=== PATIENT | female | born 1945 | race Caucasian/White ===

== ENCOUNTER 2016-08-25 09:08 | Inpatient (IN) | payer OTHER, BC ==
[~2016-08-25] VITALS: Ht 162.6 cm; Wt 104.3 kg
--- NOTE | ~2016-08-25 | D ---
[facility] [place] [address] DISCHARGE SUMMARY Name: RODO BLACKWELL Room #: 547-P [facility] IN M.R.#: [id number] Admission: 08/25/16 Attend Phys: Alec Mcmullen MD Discharge: 08/28/16 Date of : 43 Report #: [id number] THIS REPORT FOR: //name// CC: Alec Marrerosamm Hoskinsvalentino DATE OF SERVICE: 08/28/2016 TYPE OF DICTATION: Discharge summary. After [id number] encounter, I did see the patient and examined her on the day of discharge service. DISCHARGE DIAGNOSES: 1. Fracture of proximal end of tibia and fibula, left side. 2. Insulin-dependent diabetes mellitus. 3. Osteoarthritis. 4. Hypertension. 5. Chronic obstructive pulmonary disease. 6. Hypothyroidism. 7. Depression. 8. Gastroesophageal reflux disease. 9. Hyperlipidemia. 10. Unstable gait. DISCHARGE MEDICATIONS: See discharge summary. HOSPITAL COURSE: The patient was admitted to the hospital secondary to fracture of proximal end of tibia and fibula after a fall. She was seen by orthopedic and they said that she is not a candidate for any surgery and they are going to treat her with just splint and knee immobilization. The patient was doing fine during her stay in the hospital or her medical problems were under control and she is going to this afternoon to follow with physical therapy there and to get OT and PT. <ELECTRONICALLY SIGNED> By: Aletha Cruz MD 08/29/16 1015 1134 1945 Aletha Cruz MD /nt
--- NOTE | ~2016-08-25 | EKG ---
[place] [address] [address] [facility] [place] [address] ELECTROCARDIOGRAM REPORT Name: RODO BLACKWELL Room #: 547-P ADM IN ..#: [id number] Admission: 08/25/16 Attend Phys: Alec Mcmullen MD Discharge: Date of : 43 Report #: [id number] THIS REPORT FOR: //name// [facility] ED Test Date: 2016-08-25 Test Time: 11:02:30 Pat Name: RODO BLACKWELL Department: Room: 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
--- NOTE | ~2016-08-25 | HC ---
[facility] [place] [address] CONSULTATION Name: RODO BLACKWELL Room #: 547-P ADM IN M.R.#: [id number] Admission: 08/25/16 Attend Phys: Alec Mcmullen MD Discharge: Date of : 43 Report #: [id number] THIS REPORT FOR: //name// CC: Alec Ayala CHIEF COMPLAINT: Left proximal tibia and fibular fracture. 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 She subsequently was evaluated in the emergency room and noted to have a proximal tibia and fibular fracture. PAST MEDICAL HISTORY: Significant or post-polio, hyperlipidemia, unstable gait, diabetes type 2, hypertension, osteoarthritis, bilateral total knee replacements, bladder sling, ankle fracture, deviated septum repair in 1999, COPD, chronic cough, history of thyroidectomy, tonsillectomy, history of hypothyroidism, gastroesophageal reflux disease, depression and anxiety. ALLERGIES: None. PHYSICAL EXAMINATION: GENERAL: This is an obese female, in minimal distress. EXTREMITIES: Examination of her left lower extremity notes that she is neurovascularly intact distally. She has good capillary refill. She is tender proximally at her proximal tibia and fibula. MUSCULOSKELETAL: Examination of the patient's left lower extremity notes that she has tenderness proximally at the proximal tibia. She has moderate edema. She, otherwise, is neurovascularly intact. She has good capillary refill. Motor is grossly intact as well. She is tender to the proximal tibia and fibula. SOCIAL HISTORY: Significant for tobacco use. Does not smoke any longer. MEDICATIONS: Noted on the OCT. IMAGING: X-rays note a periprosthetic tibia and fibular fracture, which is mildly displaced in satisfactory alignment. IMPRESSION: Left proximal tibia and fibular fracture. PLAN: We will proceed with a knee immobilizer with no weightbearing over the next 6-8 weeks. We will follow along with you. [address] [address] CONSULTATION Name: RODO BLACKWELL Jamal Room #: 547-P [facility] IN ..#: [id number] Admission: 08/25/16 Attend Phys: Alec Mcmullen MD Discharge: Date of : 43 Report #: [id number] Thank you for allowing me to participate in the care of this pleasant patient. <ELECTRONICALLY SIGNED> By: Edilberto Patterson MD 08/26/16 0809 1132 1219 Edilberto Patterson MD /nt
[~2016-08-25 09:08] MED LIST: ADULT LOW DOSE81 MG PO; AMARYL1 MG PO; AMBIEN 10 MG TA10 MG PO; AMLODIPINE BESYL5 MG PO; CHANTIX1 MG PO; COZAAR 50 MG TA50 M1 PO; ENABLEX 7.5 MG7.5 M1 PO; ENABLEX15 MG PO; ETODOLAC 400 M400 M1 PO; GLUCOPHAGE XR500 MG PO; GLUCOPHAGE1000 MG PO; LEVOTHYROXIN0.125 M2 PO; LEVOXYL150 MCG PO; LEXAPRO 10 MG T10 MG PO; LEXAPRO20 MG PO; LISINOPRIL20 MG PO; NICORETTE2 MG BC; NORCO 5-325 TA1 EACH PO; OXYBUTYNIN CHLO15 MG PO; PRAVASTATIN SOD20 MG PO; PRILOSEC 20 MG20 MG PO; SYMBICORT160 MCG/4. INH; TIROSINT150 MCG PO; TUMS PO; VICODIN PO; ZOCOR 20 MG TAB20 M1 PO
[2016-08-25] MEDS ORDERED: LEVOTHYROXIN0.175 MG PO (09:14)
[2016-08-25] MEDS ORDERED: AMARYL2 MG PO (09:15)
[2016-08-25] MEDS ORDERED: PRAVACHOL20 MG PO (09:16)
[2016-08-25 10:04] LABS: HEMATOCRIT 41.2 % (37.0-47.0); HEMOGLOBIN 13.5 gm/dL (12.0-15.0); MCH 28.6 pg (26.0-34.0); MCHC 32.8 % (28.0-37.0); MCV 87.1 fL (80.0-100.0); PLATELET COUNT 201 thou/uL (150-400); RBC 4.73 mil/uL (4.20-5.00); RDW 13.5 % (10.5-14.5); WBC 13.2 thou/uL (4.0-11.0)
[2016-08-25 10:09] LABS: MANUAL DIFF YES
[2016-08-25 10:20] LABS: APTT 22.7 Seconds (24.5-32.8)
[2016-08-25 10:21] LABS: CALCIUM 8.9 mg/dL (8.5-10.1); CREATININE 0.9 mg/dL (0.6-1.3); POTASSIUM 3.8 mmol/L (3.5-5.1)
[2016-08-25 10:50] LABS: ABSOLUTE NEUTROPHILS 10.7 thou/uL (1.4-8.2); PLATELET ESTIMATE NORMAL; TOTAL CELL COUNT 100
[2016-08-25 11:43] VITALS: BP 129/79
[2016-08-25 11:56] LABS: URINE BILIRUBIN 2+ (Negative); URINE BLOOD NEGATIVE (Negative); URINE COLOR YELLOW; URINE GLUCOSE-RANDOM* NEGATIVE (Negative); URINE KETONES NEGATIVE (Negative); URINE NITRITE NEGATIVE (Negative); URINE PROTEIN (DIPSTICK) NEGATIVE (Negative); URINE SPECIFIC GRAVITY 1.025 (1.003-1.035); URINE UROBILINOGEN 0.2 E.U./dl (0.2-1.0)
[2016-08-25 12:02] LABS: ICTOTEST (BILI CONFIRMATORY) Positive (Negative)
[2016-08-25] MEDS ORDERED: LEXAPRO 10 MG T10 M1 PO (12:46)
[2016-08-25 21:36] VITALS: BP 123/62
[2016-08-26 00:15] VITALS: BP 112/50
[2016-08-26 04:45] LABS: ABSOLUTE NEUTROPHILS 5.3 thou/uL (1.4-8.2); BASOPHILS 0.6 % (0.0-2.0); EOSINOPHILS 0.9 % (0.0-3.0); HEMATOCRIT 31.1 % (37.0-47.0); LYMPHOCYTES 21.3 % (24.0-44.0); MCH 29.3 pg (26.0-34.0); MCHC 33.8 % (28.0-37.0); MCV 86.7 fL (80.0-100.0); MONOCYTES 9.9 % (1.0-8.0); PLATELET COUNT 163 thou/uL (150-400); POLYS 67.3 % (36.0-66.0); RBC 3.59 mil/uL (4.20-5.00); RDW 13.4 % (10.5-14.5); WBC 7.8 thou/uL (4.0-11.0)
[2016-08-26 04:48] LABS: HEMOGLOBIN 10.5 gm/dL (12.0-15.0)
[2016-08-26 04:50] LABS: MANUAL DIFF NO
[2016-08-26 04:54] VITALS: BP 117/62
[2016-08-26 05:01] LABS: ALBUMIN 2.5 g/dL (3.4-5.0); CALCIUM 7.8 mg/dL (8.5-10.1); CREATININE 0.7 mg/dL (0.6-1.3); MAGNESIUM 1.9 mg/dL (1.8-2.4); POTASSIUM 3.9 mmol/L (3.5-5.1); TOTAL BILIRUBIN 0.7 mg/dL (<0.1-1.0); TOTAL PROTEIN 5.2 g/dL (6.4-8.2)
[2016-08-26 08:00] VITALS: BP 154/69
[2016-08-26] MEDS ORDERED: HYDROCODON-ACE1 EAC7 PO (09:17)
[2016-08-26 20:05] VITALS: BP 141/56
[2016-08-27 04:23] VITALS: BP 131/61
[2016-08-27 08:20] VITALS: BP 152/86
[2016-08-27 16:36] VITALS: BP 133/67
[2016-08-27 19:22] VITALS: BP 124/61
[2016-08-28 08:15] VITALS: BP 177/83
== END 2016-08-28 15:20 | DRG 562 ==
LOC: ER 09:08 → EROBS 10:20 → 5S 10:20
PROVIDERS: Emergency Medicine; Nurse Practitioner
DX: S82.102A Unspecified fracture of upper end of left tibia, initial encounter for closed fracture (principal); E43 Unspecified severe protein-calorie malnutrition; S82.832A Other fracture of upper and lower end of left fibula, initial encounter for closed fracture; E11.9 Type 2 diabetes mellitus without complications; I10 Essential (primary) hypertension; M19.90 Unspecified osteoarthritis, unspecified site; Z96.653 Presence of artificial knee joint, bilateral; E89.0 Postprocedural hypothyroidism; F32.9 Major depressive disorder, single episode, unspecified; F41.9 Anxiety disorder, unspecified; K21.9 Gastro-esophageal reflux disease without esophagitis; E78.5 Hyperlipidemia, unspecified; J44.9 Chronic obstructive pulmonary disease, unspecified; R26.9 Unspecified abnormalities of gait and mobility; D72.829 Elevated white blood cell count, unspecified; E86.0 Dehydration; R05 Cough; Z87.891 Personal history of nicotine dependence; Z79.4 Long term (current) use of insulin; W18.39XA Other fall on same level, initial encounter; Y93.89 Activity, other specified; Y92.89 Other specified places as the place of occurrence of the external cause; Y99.8 Other external cause status
CPT/HCPCS: 10785